=== PATIENT | female | born 1970 | race Caucasian/White ===

== ENCOUNTER 2021-07-20 19:01 | Emergency (ER) | payer SELFPAY | END 2021-07-20 20:24 | disposition left against medical advice (07) | LOC: ER 19:01 | DX: R10.9 Unspecified abdominal pain (principal); Z53.21 Procedure and treatment not carried out due to patient leaving prior to being seen by health care provider ==

== ENCOUNTER 2022-03-06 13:30 | Outpatient (CLI) | payer BC | END 2022-03-06 23:59 | disposition home or self-care (01) | LOC: RAD 13:30 | PROVIDERS: ATTEND Orthopaedic Surgery | DX: M47.817 Spondylosis without myelopathy or radiculopathy, lumbosacral region (principal); M48.07 Spinal stenosis, lumbosacral region; M70.61 Trochanteric bursitis, right hip; M76.31 Iliotibial band syndrome, right leg; M25.552 Pain in left hip; M25.551 Pain in right hip; Z90.49 Acquired absence of other specified parts of digestive tract; Z97.5 Presence of (intrauterine) contraceptive device; Z98.890 Other specified postprocedural states | CPT/HCPCS: 72100; 72170 ==

== ENCOUNTER 2022-03-19 11:34 | Outpatient (CLI) | payer BC | END 2022-03-19 23:59 | disposition home or self-care (01) | LOC: RAD 11:34 | PROVIDERS: ATTEND Orthopaedic Surgery | DX: M51.36 Other intervertebral disc degeneration, lumbar region (principal); M48.061 Spinal stenosis, lumbar region without neurogenic claudication; M47.816 Spondylosis without myelopathy or radiculopathy, lumbar region; M51.26 Other intervertebral disc displacement, lumbar region; M19.09 Primary osteoarthritis, other specified site; K57.30 Diverticulosis of large intestine without perforation or abscess without bleeding; M70.61 Trochanteric bursitis, right hip; M76.31 Iliotibial band syndrome, right leg; M25.552 Pain in left hip; M25.551 Pain in right hip | CPT/HCPCS: 72148; 73721 ==

== ENCOUNTER → 2022-10-19 | Outpatient (CLI) | payer BC ==
[2022-10-19 08:56] LABS: HEMOGLOBIN A1C 5.8 % (4.5-6.2)
[2022-10-19 08:59] LABS: CHOL/HDL RATIO 5.5 (0.00-4.99); CHOLESTEROL 253 MG/DL (0-200); HDL CHOLESTEROL 46 MG/DL (35-60); LDL CHOLESTEROL 161 MG/DL (50-100); TRIGLYCERIDES 154 MG/DL (20-135)
== END | disposition home or self-care (01) ==
LOC: LAB 08:17
PROVIDERS: ATTEND Family Medicine
DX: Z13.1 Encounter for screening for diabetes mellitus (principal); E78.5 Hyperlipidemia, unspecified
CPT/HCPCS: 36415; 80061; 83036

== ENCOUNTER 2022-11-08 10:51 | Outpatient (CLI) | payer BC | END 2022-11-08 23:59 | disposition home or self-care (01) | LOC: LAB 10:51 | PROVIDERS: ATTEND Family Medicine | DX: M77.31 Calcaneal spur, right foot (principal); M79.671 Pain in right foot | CPT/HCPCS: 73630 ==

== ENCOUNTER 2022-12-05 09:37 | Emergency (ER) | payer BC ==
[~2022-12-05] VITALS: Ht 160 cm; Wt 80.0 kg
[2022-12-05 10:30] LABS: HEMOGLOBIN 14.9 g/dl (12.0-16.0); MEAN PLATELET VOLUME 8.8 FL (7.4-10.4); RED CELL DISTRIBUTION WIDTH 13.9 % (11.5-14.5)
[2022-12-05 10:31] LABS: BASOPHILS # (AUTO) 0.1 X10'3 (0-0.2); BASOPHILS % (AUTO) 0.5 % (0-1); EOSINOPHILS # (AUTO) 0.2 X10'3 (0-0.9); EOSINOPHILS % (AUTO) 1.7 % (0-6); HEMATOCRIT 44.6 % (35.0-45.0); LYMPHOCYTES # (AUTO) 3.7 X10'3 (1.1-4.8); LYMPHOCYTES % (AUTO) 37.8 % (21-51); MEAN CORPUSCULAR HEMOGLOBIN 31.1 PG (27.0-31.0); MEAN CORPUSCULAR HGB CONC 33.4 g/dL (33.0-36.5); MONOCYTES # (AUTO) 0.8 X10'3 (0-0.9); MONOCYTES % (AUTO) 7.8 % (2-12); NEUTROPHILS # (AUTO) 5.1 X10'3 (1.8-7.7); NEUTROPHILS % (AUTO) 52.2 % (42-75); PLATELET COUNT 257 X10'3 (140-440); WHITE BLOOD COUNT 9.9 X10'3 (4.5-11.0)
[2022-12-05 10:41] LABS: ALANINE AMINOTRANSFERASE 41 U/L (12-78); ALBUMIN 3.9 G/DL (3.4-5.0); ALBUMIN/GLOBULIN RATIO 1.1 (1.1-1.5); ALKALINE PHOSPHATASE 151 IU/L (46-116); AMYLASE 90 U/L (25-115); ANION GAP 9 (8-16); ASPARTATE AMINO TRANSFERASE 16 U/L (10-37); BILIRUBIN,TOTAL 0.4 MG/DL (0.1-1.0); BLOOD UREA NITROGEN 28 MG/DL (7-18); BUN/CREATININE RATIO 30.4 (10.0-20.0); CALCIUM 9.5 MG/DL (8.5-10.1); CHLORIDE 107 MMOL/L (99-107); CREATININE 0.92 MG/DL (0.40-0.90); GLUCOSE 77 MG/DL (70-104); LIPASE 415 U/L (73-393); SODIUM 139 MMOL/L (135-145); TOTAL CARBON DIOXIDE 23.5 MMOL/L (24-32); TOTAL PROTEIN 7.5 G/DL (6.4-8.2); eGFR 64 ML/MIN
[2022-12-05] MEDS ORDERED: ondansetron/PF 4mg/2ml inj IV ONE (10:45)
[2022-12-05] MEDS ORDERED: iohexol 300mg/ml 100ml inj. ONE (11:02)
[2022-12-05 11:19] LABS: COLOR,URINE YELLOW (Yellow); GLUCOSE, URINE NEGATIVE (Neg); KETONES,URINE NEGATIVE (Neg); LEUKOCYTE ESTERASE ,URINE NEGATIVE (Neg); NITRITES, URINE NEGATIVE (Neg); OCCULT BLOOD,URINE NEGATIVE (Neg); PROTEIN,URINE NEGATIVE (Neg); URINE HCG NEGATIVE (NEG); UROBILINOGEN,URINE 0.2 E.U/dL (0.2-1.0)
[2022-12-05 11:21] LABS: CLARITY,URINE SLIGHTLY CLOUDY (Clear)
[2022-12-05 11:31] LABS: SQUAMOUS EPITHELIAL CELL,UR MANY /LPF (FEW); UA COLLECTION TYPE CLN CATCH MIDSTREAM
[2022-12-05 11:32] LABS: BACTERIA,URINE 2+ /HPF (Neg); MUCUS STRANDS FEW /LPF (Neg)
[2022-12-05 11:33] LABS: RBC,URINE 0-2 /HPF (0-2); WBC,URINE 0-4 /HPF (0-4)
[2022-12-05] MEDS ORDERED: ONDA4TAB12 PO (12:55)
[2022-12-05] MEDS ORDERED: AMOX-117 PO (12:55)
[2022-12-05] MEDS ORDERED: METR-159 PO (12:55)
[2022-12-05 13:13] VITALS: BP 126/90
== END 2022-12-05 19:06 | disposition home or self-care (01) ==
LOC: ER 09:38
DX: R10.9 Unspecified abdominal pain (principal); R19.7 Diarrhea, unspecified; R05.9 Cough, unspecified; M54.9 Dorsalgia, unspecified; Z79.899 Other long term (current) drug therapy
CPT/HCPCS: 36415; 74177; 80053; 81001; 81025; 82150; 83690; 85025; 96374; 99285; J2405; J3490; Q9967

== ENCOUNTER 2023-01-02 18:39 | Emergency (ER) | payer BC ==
[~2023-01-02] VITALS: Ht 160 cm; Wt 80.9 kg
[~2023-01-02 18:39] MED LIST: ONDA4TAB12 PO
[2023-01-02 18:57] VITALS: BP 139/92; PULSE 102; RESP 18; O2SAT 98
[2023-01-02 19:26] LABS: BASOPHILS # (AUTO) 0.1 X10'3 (0-0.2); BASOPHILS % (AUTO) 0.7 % (0-1); EOSINOPHILS # (AUTO) 0.2 X10'3 (0-0.9); EOSINOPHILS % (AUTO) 1.7 % (0-6); HEMATOCRIT 44.6 % (35.0-45.0); HEMOGLOBIN 14.9 g/dl (12.0-16.0); LYMPHOCYTES % (AUTO) 19.9 % (21-51); MEAN CORPUSCULAR HEMOGLOBIN 31.4 PG (27.0-31.0); MEAN CORPUSCULAR HGB CONC 33.5 g/dL (33.0-36.5); MEAN CORPUSCULAR VOLUME 93.8 FL (78-98); MEAN PLATELET VOLUME 8.2 FL (7.4-10.4); MONOCYTES # (AUTO) 0.6 X10'3 (0-0.9); MONOCYTES % (AUTO) 6.2 % (2-12); NEUTROPHILS # (AUTO) 7.2 X10'3 (1.8-7.7); NEUTROPHILS % (AUTO) 71.5 % (42-75); PLATELET COUNT 235 X10'3 (140-440); RED BLOOD COUNT 4.75 X10'6 (4.20-5.60); RED CELL DISTRIBUTION WIDTH 13.7 % (11.5-14.5)
[2023-01-02 19:36] LABS: ALANINE AMINOTRANSFERASE 33 U/L (12-78); ALBUMIN 3.9 G/DL (3.4-5.0); ALBUMIN/GLOBULIN RATIO 0.9 (1.1-1.5); ALKALINE PHOSPHATASE 142 IU/L (46-116); ANION GAP 10 (8-16); ASPARTATE AMINO TRANSFERASE 19 U/L (10-37); BILIRUBIN,TOTAL 0.3 MG/DL (0.1-1.0); BLOOD UREA NITROGEN 20 MG/DL (7-18); BUN/CREATININE RATIO 21.5 (10.0-20.0); CALCIUM 9.6 MG/DL (8.5-10.1); CHLORIDE 107 MMOL/L (99-107); CREATININE 0.93 MG/DL (0.40-0.90); GLUCOSE 104 MG/DL (70-104); LIPASE 172 U/L (73-393); POTASSIUM 3.7 MMOL/L (3.5-5.1); SODIUM 143 MMOL/L (135-145); TOTAL CARBON DIOXIDE 25.6 MMOL/L (24-32); TOTAL PROTEIN 8.2 G/DL (6.4-8.2); eGFR 63 ML/MIN
[2023-01-02 19:58] LABS: URINE HCG NEGATIVE (NEG)
[2023-01-02 19:59] LABS: CLARITY,URINE CLEAR (Clear); COLOR,URINE YELLOW (Yellow); GLUCOSE, URINE NEGATIVE (Neg); KETONES,URINE NEGATIVE (Neg); LEUKOCYTE ESTERASE ,URINE SMALL (Neg); NITRITES, URINE NEGATIVE (Neg); OCCULT BLOOD,URINE TRACE-INTACT (Neg); PROTEIN,URINE NEGATIVE (Neg); UROBILINOGEN,URINE 0.2 E.U/dL (0.2-1.0)
[2023-01-02 20:04] LABS: UA COLLECTION TYPE CLN CATCH MIDSTREAM
[2023-01-02 20:05] LABS: SQUAMOUS EPITHELIAL CELL,UR MODERATE /LPF (FEW)
[2023-01-02 20:06] LABS: BACTERIA,URINE NONE SEEN /HPF (Neg)
[2023-01-02] MEDS ORDERED: normal saline 1000ML IV soln IVB ONE (20:30)
[2023-01-02] MEDS ORDERED: ketorolac tromethamine 15mg/ml inj. IV ONE (20:30)
[2023-01-02] MEDS ORDERED: ondansetron/PF 4mg/2ml inj IV ONE (20:30)
[2023-01-02] MEDS: morphine 4 MG/ML inj SYRINge IV PRN ×2 (21:29→22:09)
[2023-01-02] MEDS ORDERED: CefTRIAXone 2gm/D5W 50ml BAG 50 ML IV ONE (21:30)
[2023-01-02] MEDS ORDERED: CEPH-585 PO (21:30)
--- NOTE | 2023-01-02 22:09 | NUR ---
iv dc'd pt being discharged dressing applied
== END 2023-01-02 22:22 | disposition home or self-care (01) ==
LOC: ER 18:40
DX: N39.0 Urinary tract infection, site not specified (principal); Z90.49 Acquired absence of other specified parts of digestive tract; Z72.89 Other problems related to lifestyle; Z79.899 Other long term (current) drug therapy
CPT/HCPCS: 36415; 74176; 80053; 81001; 81025; 83690; 85025; 87088; 96365; 96375; 99285; J0696; J1885; J7030

== ENCOUNTER 2023-07-05 05:36 | Day surgery (SDC) | payer BC ==
[2023-07-01 15:54] LABS: BASOPHILS # (AUTO) 0.1 X10'3 (0-0.2); BASOPHILS % (AUTO) 0.9 % (0-1); EOSINOPHILS # (AUTO) 0.2 X10'3 (0-0.9); LYMPHOCYTES # (AUTO) 3.5 X10'3 (1.1-4.8); LYMPHOCYTES % (AUTO) 46.5 % (21-51); MEAN CORPUSCULAR HEMOGLOBIN 30.9 PG (27.0-31.0); MEAN CORPUSCULAR HGB CONC 33.1 g/dL (33.0-36.5); MEAN CORPUSCULAR VOLUME 93.5 FL (78-98); MEAN PLATELET VOLUME 8.9 FL (7.4-10.4); MONOCYTES # (AUTO) 0.5 X10'3 (0-0.9); MONOCYTES % (AUTO) 6.8 % (2-12); NEUTROPHILS # (AUTO) 3.2 X10'3 (1.8-7.7); NEUTROPHILS % (AUTO) 42.8 % (42-75); PRE OP HEMATOCRIT 44.6 % (35.0-45.0); PRE OP HEMOGLOBIN 14.7 g/dL (12.0-16.0); PRE OP PLATELET COUNT 238 X10'3 (140-440); PRE OP WHITE BLOOD COUNT 7.5 10'3 (4.8-10.8); RED BLOOD COUNT 4.77 X10'6 (4.20-5.60); RED CELL DISTRIBUTION WIDTH 13.7 % (11.5-14.5)
[2023-07-01 16:17] LABS: ALBUMIN 3.8 G/DL (3.4-5.0); ALKALINE PHOSPHATASE 147 IU/L (46-116); BLOOD UREA NITROGEN 28 MG/DL (7-18); BUN/CREATININE RATIO 30.1 (10.0-20.0); CHLORIDE 107 MMOL/L (99-107); CREATININE 0.93 MG/DL (0.40-0.90); PRE OP ALT 35 U/L (30-65); PRE OP ANION GAP 10 (8-16); PRE OP AST 18 U/L (10-37); PRE OP BILIRUB, TOTAL 0.3 MG/DL (0.0-1.0); PRE OP GLUCOSE 100 MG/DL (70-104); PRE OP POTASSIUM 3.5 MMOL/L (3.4-5.1); PRE OP SODIUM 143 MMOL/L (135-145); TOTAL CARBON DIOXIDE 26.2 MMOL/L (24-32); TOTAL PROTEIN 7.8 G/DL (6.4-8.2); eGFR 63 ML/MIN
[~2023-07-05] VITALS: Ht 160 cm; Wt 81.6 kg
[2023-07-05] VITALS (18 sets, daily range): BP systolic 100–121; BP diastolic 59–86; PULSE 54–82; RESP 12–16; TEMP 98.3; O2SAT 93–97
[~2023-07-05 05:36] MED LIST changes: +ESCI-8 PO; +LEVE750T PO; +LEVE750T6 PO; -ONDA4TAB12 PO; +TOP100T PO; +cefazolin 2gm/D5W 100mL 100 ML IV ONE; +famotidine 20mg tablet PO ONE; +ringers solution, lacted 1,000 ML IV SCH
[2023-07-05] MEDS ORDERED: BUPIVAcaine 0.5% inj/PF 30 ML ONE (06:54)
[2023-07-05] MEDS ORDERED: scopolamine 1MG/72H patch 1 PATCH PATCH.TD.3 TD ONE (07:09)
[2023-07-05] MEDS ORDERED: midazolam 1 mg/ML 2ml injection ONE ×2 (07:10→07:23)
[2023-07-05] MEDS ORDERED: cloNIDine hcl/PF 100mcg/ml inj ONE (07:21)
[2023-07-05] MEDS ORDERED: fentaNYL/PF 50MCG/1 ML 2ML syringe ONE (07:23)
[2023-07-05] MEDS ORDERED: propofol inj 0 ML IV ONE (07:23)
[2023-07-05] MEDS ORDERED: sevoflurane 250ml liquid IH ONE (07:24)
[2023-07-05] MEDS ORDERED: LIDOcaine 2% (20mg/ml) 5ml vial ONE (07:24)
[2023-07-05] MEDS ORDERED: propofol inj 20 ML IV ONE (07:24)
[2023-07-05] MEDS ORDERED: dexamethasone sod phosphate 4mg/ml inj. ONE (07:25)
[2023-07-05] MEDS ORDERED: ROPIVAcaine 0.5% (5mg/ml) 30ml vial ONE (07:25)
[2023-07-05] MEDS ORDERED: BUPIVAcaine 0.5% inj/PF 30 ml vial IJ ONE (08:16)
[2023-07-05] MEDS ORDERED: ondansetron/PF 4mg/2ml inj IV PRN (08:35)
[2023-07-05] MEDS ORDERED: morphine 4 MG/ML inj SYRINge IV PRN (08:35)
[2023-07-05] MEDS ORDERED: proCHLORperazine 10 MG/2 ml inj IV PRN (08:35)
[2023-07-05] MEDS ORDERED: meperidine/PF 25mg/ml syringe IV PRN ×3 (08:35)
[2023-07-05] MEDS ORDERED: ringers solution, lacted 1,000 ML IV SCH (08:35)
[2023-07-05] MEDS ORDERED: morphine 2 MG/ML inj. syringe IV PRN (08:35)
[2023-07-05] MEDS ORDERED: triamcinolone acetonide 40mg/ml inj ONE (08:44)
[2023-07-05] MEDS ORDERED: ondansetron/PF 4mg/2ml inj ONE (08:56)
[2023-07-05] MEDS ORDERED: triamcinolone acetonide 40mg/ml inj IJ ONE (08:59)
== END 2023-07-05 11:55 | disposition home or self-care (01) ==
LOC: PAS 05:36
PROVIDERS: ATTEND Orthopaedic Surgery
DX: M75.02 Adhesive capsulitis of left shoulder (principal); M75.22 Bicipital tendinitis, left shoulder; M75.52 Bursitis of left shoulder; M65.812 Other synovitis and tenosynovitis, left shoulder; S46.012A Strain of muscle(s) and tendon(s) of the rotator cuff of left shoulder, initial encounter; S43.432A Superior glenoid labrum lesion of left shoulder, initial encounter; G40.409 Other generalized epilepsy and epileptic syndromes, not intractable, without status epilepticus; G89.18 Other acute postprocedural pain; Z98.890 Other specified postprocedural states; Z79.899 Other long term (current) drug therapy; Z90.49 Acquired absence of other specified parts of digestive tract; Z82.5 Family history of asthma and other chronic lower respiratory diseases; Z80.3 Family history of malignant neoplasm of breast; Z82.3 Family history of stroke; X58.XXXA Exposure to other specified factors, initial encounter; Y93.89 Activity, other specified; Y92.89 Other specified places as the place of occurrence of the external cause; Y99.8 Other external cause status
CPT/HCPCS: 29823; 29828; 36415; 64415; 80053; 82948; 85025; 93005; J0690; J0735; J1100; J2250; J2405; J2704; J2795; J3010; J3301; J3490; J7030; J7120; S0020; Z7506; Z7508; Z7512; A4215; A4565; A4618; A6253; A6449; A7000

== ENCOUNTER 2023-08-27 08:31 | Outpatient (CLI) | payer BC ==
[~2023-08-27 08:31] MED LIST changes: -cefazolin 2gm/D5W 100mL 100 ML IV ONE; -famotidine 20mg tablet PO ONE; -ringers solution, lacted 1,000 ML IV SCH
== END 2023-08-27 23:59 | disposition home or self-care (01) ==
LOC: RAD 08:31
PROVIDERS: ATTEND Family Medicine
DX: R05.9 Cough, unspecified (principal)
CPT/HCPCS: 71046

== ENCOUNTER 2023-10-02 07:54 | Day surgery (SDC) | payer BC ==
[~2023-10-02] VITALS: Ht 160 cm; Wt 79.5 kg
[2023-10-02 08:08] VITALS: BP 139/86; PULSE 89; RESP 13
[2023-10-02] MEDS ORDERED: LIDOcaine 2% Viscous 15ml cup ONE (08:37)
[2023-10-02] MEDS ORDERED: fentaNYL/PF 50MCG/1 ML 2ML syringe ONE (08:48)
[2023-10-02] MEDS ORDERED: diphenhydrAMINE 50 mg/ml inj ONE (08:49)
[2023-10-02] MEDS ORDERED: MIDAZolam 1 MG/ML 5ML VIAL ONE (08:49)
[2023-10-02 09:15] VITALS: BP 124/77; PULSE 68; RESP 11; O2SAT 97
[2023-10-02 09:25] VITALS: BP 125/72; PULSE 66; RESP 11; O2SAT 93
[2023-10-02 09:35] VITALS: BP 120/76; PULSE 67; RESP 12; O2SAT 93
[2023-10-02 09:45] VITALS: BP 124/84; PULSE 72; RESP 14; O2SAT 96
== END 2023-10-02 09:51 | disposition home or self-care (01) ==
LOC: GI LAB 07:54
PROVIDERS: ATTEND Internal Medicine Gastroenterology
DX: K21.9 Gastro-esophageal reflux disease without esophagitis (principal)
CPT/HCPCS: 43239; 99152; J1200; J2250; J3010; Z7512; A4620

== ENCOUNTER 2023-10-02 15:29 | Emergency (ER) | payer BC ==
[~2023-10-02] VITALS: Ht 160 cm; Wt 90.0 kg
[2023-10-02 15:34] VITALS: TEMP 98.7
[2023-10-02 16:44] LABS: BASOPHILS % (AUTO) 0.8 % (0-1); EOSINOPHILS # (AUTO) 0.1 X10'3 (0-0.9); EOSINOPHILS % (AUTO) 1.7 % (0-6); HEMATOCRIT 41.3 % (35.0-45.0); HEMOGLOBIN 13.6 g/dl (12.0-16.0); LYMPHOCYTES # (AUTO) 2.4 X10'3 (1.1-4.8); LYMPHOCYTES % (AUTO) 37.9 % (21-51); MEAN CORPUSCULAR HEMOGLOBIN 31.1 PG (27.0-31.0); MEAN CORPUSCULAR VOLUME 94.3 FL (78-98); MEAN PLATELET VOLUME 8.6 FL (7.4-10.4); MONOCYTES # (AUTO) 0.4 X10'3 (0-0.9); MONOCYTES % (AUTO) 6.1 % (2-12); NEUTROPHILS # (AUTO) 3.4 X10'3 (1.8-7.7); NEUTROPHILS % (AUTO) 53.5 % (42-75); PLATELET COUNT 202 X10'3 (140-440); RED BLOOD COUNT 4.38 X10'6 (4.20-5.60); RED CELL DISTRIBUTION WIDTH 13.8 % (11.5-14.5); WHITE BLOOD COUNT 6.3 X10'3 (4.5-11.0)
[2023-10-02 16:48] LABS: ALBUMIN 3.4 G/DL (3.4-5.0); ANION GAP 8 (8-16); BLOOD UREA NITROGEN 20 MG/DL (7-18); BUN/CREATININE RATIO 27.4 (10.0-20.0); CALCIUM 8.9 MG/DL (8.5-10.1); CHLORIDE 110 MMOL/L (99-107); CREATININE 0.73 MG/DL (0.40-0.90); GLUCOSE 116 MG/DL (70-104); POTASSIUM 3.4 MMOL/L (3.5-5.1); SODIUM 142 MMOL/L (135-145); TOTAL CARBON DIOXIDE 23.6 MMOL/L (24-32); eCRCL 74 ML/MIN; eGFR 83 ML/MIN
[2023-10-02] MEDS: normal saline 1000ML IV soln IVB ONE (16:48)
[2023-10-02] MEDS: magnesium 2GM in 50ml NS 50 ML IV ONE (16:49)
[2023-10-02] MEDS: metoclopramide 5 mg/ml inj IV ONE (16:49)
[2023-10-02] MEDS: diphenhydrAMINE 50 mg/ml inj IV ONE (16:49)
[2023-10-02] MEDS ORDERED: ketorolac trometh. 30mg/ml inj. IV ONE (17:40)
[2023-10-02] MEDS: ketorolac tromethamine 15mg/ml inj. IV ONE (17:50)
[2023-10-02 18:28] LABS: BILIRUBIN,URINE NEGATIVE (Neg); CLARITY,URINE SLIGHTLY CLOUDY (Clear); COLOR,URINE YELLOW (Yellow); GLUCOSE, URINE NEGATIVE (Neg); KETONES,URINE NEGATIVE (Neg); LEUKOCYTE ESTERASE ,URINE NEGATIVE (Neg); NITRITES, URINE NEGATIVE (Neg); OCCULT BLOOD,URINE NEGATIVE (Neg); PH,URINE 6.5 (4.8-8.0); PROTEIN,URINE NEGATIVE (Neg); UROBILINOGEN,URINE 0.2 E.U/dL (0.2-1.0)
[2023-10-02 18:33] LABS: UA COLLECTION TYPE CLN CATCH MIDSTREAM
[2023-10-02 18:34] LABS: SQUAMOUS EPITHELIAL CELL,UR MANY /LPF (FEW)
[2023-10-02 18:35] LABS: BACTERIA,URINE FEW /HPF (Neg); RBC,URINE NONE SEEN /HPF (0-2); WBC,URINE 0-4 /HPF (0-4)
[2023-10-02 18:36] LABS: AMORPHOUS URATES 4+
[2023-10-02 19:06] VITALS: BP 142/91; PULSE 97; RESP 16; O2SAT 96
== END 2023-10-02 19:08 | disposition home or self-care (01) ==
LOC: ER 15:29
DX: G43.909 Migraine, unspecified, not intractable, without status migrainosus (principal); Z79.899 Other long term (current) drug therapy; Z90.49 Acquired absence of other specified parts of digestive tract
CPT/HCPCS: 36415; 70450; 71045; 80048; 81001; 85025; 93005; 96365; 96375; 99285; J1200; J1885; J2765; J3475; J7030

== ENCOUNTER 2023-12-11 08:09 | Outpatient (CLI) | payer BC | END 2023-12-11 23:59 | disposition home or self-care (01) | LOC: LAB 08:09 | PROVIDERS: ATTEND Obstetrics & Gynecology | DX: N91.2 Amenorrhea, unspecified (principal) | CPT/HCPCS: 36415; 83001 ==

== ENCOUNTER 2023-12-11 08:17 | Outpatient (CLI) | payer BC ==
[2023-12-11 09:10] LABS: BASOPHILS # (AUTO) 0.1 X10'3 (0-0.2); BASOPHILS % (AUTO) 0.8 % (0-1); EOSINOPHILS # (AUTO) 0.2 X10'3 (0-0.9); EOSINOPHILS % (AUTO) 3.2 % (0-6); HEMATOCRIT 41.6 % (35.0-45.0); HEMOGLOBIN 13.9 g/dl (12.0-16.0); LYMPHOCYTES # (AUTO) 2.3 X10'3 (1.1-4.8); LYMPHOCYTES % (AUTO) 31.6 % (21-51); MEAN CORPUSCULAR HEMOGLOBIN 30.8 PG (27.0-31.0); MEAN CORPUSCULAR HGB CONC 33.3 g/dL (33.0-36.5); MEAN CORPUSCULAR VOLUME 92.4 FL (78-98); MEAN PLATELET VOLUME 8.2 FL (7.4-10.4); MONOCYTES # (AUTO) 0.4 X10'3 (0-0.9); MONOCYTES % (AUTO) 5.7 % (2-12); NEUTROPHILS # (AUTO) 4.2 X10'3 (1.8-7.7); NEUTROPHILS % (AUTO) 58.7 % (42-75); PLATELET COUNT 208 X10'3 (140-440); RED CELL DISTRIBUTION WIDTH 13.3 % (11.5-14.5); WHITE BLOOD COUNT 7.1 X10'3 (4.5-11.0)
[2023-12-11 09:23] LABS: ALANINE AMINOTRANSFERASE 36 U/L (12-78); ALBUMIN 3.6 G/DL (3.4-5.0); ALKALINE PHOSPHATASE 130 IU/L (46-116); ANION GAP 11 (8-16); ASPARTATE AMINO TRANSFERASE 20 U/L (10-37); BILIRUBIN,TOTAL 0.5 MG/DL (0.1-1.0); BLOOD UREA NITROGEN 26 MG/DL (7-18); BUN/CREATININE RATIO 27.4 (10.0-20.0); CALCIUM 9.3 MG/DL (8.5-10.1); CHLORIDE 108 MMOL/L (99-107); CREATININE 0.95 MG/DL (0.40-0.90); GLUCOSE 123 MG/DL (70-104); POTASSIUM 3.8 MMOL/L (3.5-5.1); SODIUM 142 MMOL/L (135-145); TOTAL CARBON DIOXIDE 23.5 MMOL/L (24-32); TOTAL PROTEIN 7.3 G/DL (6.4-8.2); eGFR 62 ML/MIN
== END 2023-12-11 23:59 | disposition home or self-care (01) ==
LOC: LAB 08:17
PROVIDERS: ATTEND Nurse Practitioner Family
DX: K20.0 Eosinophilic esophagitis (principal)
CPT/HCPCS: 36415; 80053; 85025

== ENCOUNTER 2024-01-31 06:46 | Day surgery (SDC) | payer BC ==
[~2024-01-31] VITALS: Ht 160 cm; Wt 81.8 kg
[~2024-01-31 06:46] MED LIST changes: +ALBU8HFA INH
[2024-01-31 07:04] VITALS: BP 139/88; PULSE 93; RESP 18
[2024-01-31] MEDS ORDERED: propofol inj 20 ML IV ONE ×2 (08:43)
[2024-01-31 08:50] VITALS: BP 122/85; PULSE 58; RESP 16; O2SAT 100
[2024-01-31 09:00] VITALS: BP 127/85; PULSE 67; RESP 18; O2SAT 100
[2024-01-31 09:10] VITALS: BP 131/88; PULSE 58; RESP 14; O2SAT 100
[2024-01-31 09:20] VITALS: BP 138/89; PULSE 59; RESP 16; O2SAT 100
[2024-01-31 09:40] VITALS: BP 139/89; PULSE 58; RESP 16; O2SAT 99
[2024-01-31] MEDS ORDERED: propofol inj 40 ML IV ONE (10:30)
== END 2024-01-31 08:40 | disposition home or self-care (01) ==
LOC: SSTAY O 06:46
PROVIDERS: ATTEND Internal Medicine Gastroenterology
DX: K92.1 Melena (principal); K57.30 Diverticulosis of large intestine without perforation or abscess without bleeding; K64.4 Residual hemorrhoidal skin tags
CPT/HCPCS: 45378; J2704; J7030; Z7512; A4620

== ENCOUNTER 2024-04-10 08:28 | Outpatient (CLI) | payer BC ==
[2024-04-13 08:08] LABS: BASOPHILS # (AUTO) 0.1 X10'3 (0-0.2); EOSINOPHILS # (AUTO) 0.1 X10'3 (0-0.9); EOSINOPHILS % (AUTO) 2.3 % (0-6); HEMATOCRIT 40.8 % (35.0-45.0); HEMOGLOBIN 13.7 g/dl (12.0-16.0); LYMPHOCYTES # (AUTO) 3.1 X10'3 (1.1-4.8); LYMPHOCYTES % (AUTO) 48.4 % (21-51); MEAN CORPUSCULAR HEMOGLOBIN 31.5 PG (27.0-31.0); MEAN CORPUSCULAR HGB CONC 33.7 g/dL (33.0-36.5); MEAN CORPUSCULAR VOLUME 93.7 FL (78-98); MEAN PLATELET VOLUME 8.4 FL (7.4-10.4); MONOCYTES # (AUTO) 0.5 X10'3 (0-0.9); MONOCYTES % (AUTO) 7.7 % (2-12); NEUTROPHILS # (AUTO) 2.6 X10'3 (1.8-7.7); NEUTROPHILS % (AUTO) 40.6 % (42-75); PLATELET COUNT 227 X10'3 (140-440); RED BLOOD COUNT 4.35 X10'6 (4.20-5.60); RED CELL DISTRIBUTION WIDTH 13.9 % (11.5-14.5); WHITE BLOOD COUNT 6.3 X10'3 (4.5-11.0)
[2024-04-13 08:24] LABS: ALANINE AMINOTRANSFERASE 24 U/L (12-78); ALBUMIN 3.4 G/DL (3.4-5.0); ALBUMIN/GLOBULIN RATIO 0.9 (1.1-1.5); ALKALINE PHOSPHATASE 136 IU/L (46-116); ANION GAP 9 (8-16); ASPARTATE AMINO TRANSFERASE 20 U/L (10-37); BILIRUBIN,TOTAL 0.3 MG/DL (0.1-1.0); BLOOD UREA NITROGEN 20 MG/DL (7-18); BUN/CREATININE RATIO 18.9 (10.0-20.0); CALCIUM 8.5 MG/DL (8.5-10.1); CHLORIDE 107 MMOL/L (99-107); CREATININE 1.06 MG/DL (0.40-0.90); GLUCOSE 100 MG/DL (70-104); POTASSIUM 3.7 MMOL/L (3.5-5.1); SODIUM 138 MMOL/L (135-145); TOTAL CARBON DIOXIDE 21.9 MMOL/L (24-32); TOTAL PROTEIN 7.1 G/DL (6.4-8.2); eGFR 54 ML/MIN
[2024-04-13 08:34] LABS: CHOL/HDL RATIO 5.1 (0.00-4.99); CHOLESTEROL 255 MG/DL (0-200); FREE T4 (FREE THYROXINE) 0.75 NG/DL (0.73-1.40); HDL CHOLESTEROL 50 MG/DL (35-60); LDL CHOLESTEROL 159 MG/DL (50-100); THYROID STIMULATING HORMONE 5.42 ulU/ml (0.34-4.50); TRIGLYCERIDES 169 MG/DL (20-135)
[2024-04-13 08:53] LABS: HEMOGLOBIN A1C 5.8 % (4.5-6.2)
== END 2024-04-10 23:59 | disposition home or self-care (01) ==
LOC: LAB 08:28
PROVIDERS: ATTEND Family Medicine
DX: E78.5 Hyperlipidemia, unspecified (principal); E07.9 Disorder of thyroid, unspecified; F33.1 Major depressive disorder, recurrent, moderate; F41.1 Generalized anxiety disorder; G40.909 Epilepsy, unspecified, not intractable, without status epilepticus; K20.0 Eosinophilic esophagitis; R73.09 Other abnormal glucose; Z79.899 Other long term (current) drug therapy
CPT/HCPCS: 36415; 80053; 80061; 83036; 84439; 84443; 85025

== ENCOUNTER 2025-02-22 18:30 | Emergency (ER) | payer SELFPAY ==
[~2025-02-22] VITALS: Ht 162.6 cm; Wt 81.8 kg
[2025-02-22 18:36] VITALS: TEMP 98.6
[2025-02-22] MEDS: normal saline 1000ml 1,000 ML IV ONE (18:46)
--- NOTE | 2025-02-22 19:02 | RADIOLOGY REPORT ---
CHEST RADIOGRAPH Indication: CP Technique: Single frontal view of the chest was obtained Comparison: DI CHEST,SINGLE VIEW on DOS: 10/02/23 FINDINGS: Lines and Tubes: None Lungs: No focal consolidation. Pleura: No effusion. No pneumothorax. Cardiomediastinal contours: Unremarkable Bones: No acute osseous abnormality. IMPRESSION: No acute cardiopulmonary disease.
--- NOTE | 2025-02-22 19:21 | Physician Documentation ---
History of Present Illness ~ Chief Complaint: Syncope Stated Complaint: KIDNEY STONES Time Seen by MD: 18:33 Primary Medical Doctor: JUAN HPI Patient presents to the emergency room after syncopal episode. She is going to the bathroom when she suddenly had abdominal pain felt strange and fell to the ground. She did not strike her head. No blood thinners. Significant weakness to the point where she could not stand when EMS arrived. Does state that she may not been drinking enough water. Positive nausea but none at this time. She denies any chest pain or palpitations. She states she is feeling better. Initial abdominal pain has since resolved. Medication Reconciliation Allergies: Coded Allergies: No Known Allergies (Unverified , 02/22/25) Scheduled Escitalopram Oxalate (Escitalopram Oxalate), 1 TAB PO QPM, (Reported) Levetiracetam (Levetiracetam), 2 TAB PO QAM, (Reported) Levetiracetam (Keppra), 1 TAB PO QPM, (Reported) Topiramate (Topamax), 1 TAB PO QPM, (Reported) Scheduled PRN albuterol inhaler (Pro-Air Inhaler), Unknown Dose INH Q4HPRN PRN for wheezing, (Reported) Past Medical History Past Medical History: Diverticulitis Past Surgical History: cholecystectomy Alcohol Use: Other Review of Systems ROS All review of systems negative except as per HPI Physical Exam Vital Signs: Temperature: 98.6, Source: Oral, Heart Rate: 70, Respiratory Rate: 18, BP: 134/84, Pulse Oximetry: 96, Weight: 81.820 Oxygen Flow Rate: 0 Physical Exam General: Patient is awake, alert, oriented x4 in no acute distress. Anxious Head: Normocephalic and atraumatic. Eyes: Conjunctival normal. EOMI. PERRL. ENT: Mucous membranes moist. Neck: Supple, trachea is midline. Chest: Clear to auscultation bilaterally without rales, rhonchi, or wheezes. There is no accessory muscle use or retractions. Cardiac: RRR without murmurs, gallops, or rubs. Abd: Soft, nondistended, nontender, with normoactive bowel sounds. No guarding, rebound, or rigidity. Progress Results/Orders Results/Orders Orders - ASIF ARAUJO MD Electrocardiogram (02/22/25 18:34) Chest,Single View (02/22/25 18:34) Saline Lock (02/22/25 18:34) Monitor (02/22/25 18:34) Oxygen (02/22/25 18:34) Ct Abdomen Pelvis (02/22/25 21:32) Completed Orders - ASIF ARAUJO MD MG (02/22/25 18:34) PBNP (02/22/25 18:34) Chest,Single View (02/22/25 18:34) BMP (02/22/25 18:34) Hs Troponin I W Calculations (02/22/25 18:34) Hs Troponin I W Calculations (02/22/25 20:34) Hs Troponin I W Calculations (02/22/25 21:34) Procalcitonin (02/22/25 18:34) CMP (02/22/25 18:34) LA (02/22/25 18:34) Normal Saline 1000ml (0.9% Sodium Chlori (02/22/25 18:35) Cbc/Diff (02/22/25 19:22) Man Diff (02/22/25 19:48) Ua With Microscopic (02/22/25 19:44) Ct Abdomen Pelvis (02/22/25 21:32) Medications Received in ER Medications (Trade) Dose Ordered Sig/Miguelito Route PRN Reason Start Time Stop Time Status Last Admin Dose Admin Sodium Chloride 1,000 ml @ 1,000 mls/hr ONCE ONCE IV 02/22/25 18:35 02/22/25 19:34 DC 02/22/25 18:46 1,000 MLS/HR Vital Signs 02/22/25 02/22/25 02/22/25 02/22/25 18:36 20:10 20:17 22:17 Temp 98.6 Pulse 70 75 81 Resp 18 16 12 16 B/P (MAP) 134/84 109/76 (87) 129/86 (100) Pulse Ox 96 97 99 O2 Flow Rate 0 Laboratory Tests Test 02/22/25 18:47 02/22/25 19:44 02/22/25 19:48 02/22/25 20:52 CBC Comment Sodium Level 146 H Potassium Level 3.4 L Chloride Level 111 H Carbon Dioxide Level 24.9 Anion Gap 10 Blood Urea Nitrogen 23 H Creatinine 1.15 H Estimated GFR/1.73 m2 49 BUN/Creatinine Ratio 20.0 Glucose Level 142 H Lactic Acid Level 1.2 Calcium Level 9.0 Magnesium Level 2.3 Total Bilirubin 0.3 Aspartate Amino Transf (AST/SGOT) 27 Alanine Aminotransferase (ALT/SGPT) 44 Alkaline Phosphatase 160 H Troponin I High Sensitivity < 4 L < 4 L Troponin I High Sens Percent Delta Troponin I Hi Sens Absolute Change Pro-B-Type Natriuretic Peptide 34 Total Protein 7.6 Albumin 3.7 Globulin 3.9 Albumin/Globulin Ratio 0.9 L Procalcitonin < 0.05 Chemistry Comments Urine Specimen Description Non-specified Urine Color Yellow Urine Clarity Slightly cloudy Urine pH 5.5 Urine Specific [place] >=1.030 Urine Protein Negative Urine Glucose (UA) Negative Urine Ketones Negative Urine Occult Blood Negative Urine Nitrite Negative Urine Bilirubin Negative Urine Urobilinogen 0.2 Urine Leukocyte Esterase Negative Urine RBC 0-2 Urine WBC 0-4 Urine Squamous Epithelial Cells Many Urine Amorphous Urates 1+ Urine Bacteria Few Urine Mucus Few Volume Urine Centrifuged 10 ml Urine Comment White Blood Count 23.6 H Red Blood Count 4.91 Hemoglobin 14.9 Hematocrit 44.9 Mean Corpuscular Volume 91.5 Mean Corpuscular Hemoglobin 30.4 Mean Corpuscular Hemoglobin Concent 33.2 Red Cell Distribution Width 13.8 Platelet Count 246 Mean Platelet Volume 8.4 Neutrophils (%) (Auto) 80.8 H Lymphocytes (%) (Auto) 12.2 L Monocytes (%) (Auto) 6.0 Eosinophils (%) (Auto) 0.8 Basophils (%) (Auto) 0.2 Neutrophils # (Auto) 19.0 H Lymphocytes # (Auto) 2.9 Monocytes # (Auto) 1.4 H Eosinophils # (Auto) 0.2 Basophils # (Auto) 0.1 Differential Total Cells Counted 100 Neutrophils % (Manual) 81.0 H Lymphocytes % (Manual) 13.0 L Monocytes % (Manual) 5.0 Eosinophils % (Manual) 1.0 Platelet Estimate Normal Red Blood Cell Morphology Perf Basophilic Stippling Test 02/22/25 22:00 Troponin I High Sensitivity < 4 L Troponin I High Sens Percent Delta Troponin I Hi Sens Absolute Change EKG/XRAY/CT/US/VASC/MRI EKG : Additional Comment EKG interpreted by myself shows time of 1835, rate 69, sinus rhythm, normal axis, no ST changes Chest X-Ray : Additional Comments Exam: CHEST,SINGLE VIEW CHEST RADIOGRAPH Indication: CP Technique: Single frontal view of the chest was obtained Comparison: DI CHEST,SINGLE VIEW on DOS: 10/02/23 FINDINGS: Lines and Tubes: None Lungs: No focal consolidation. Pleura: No effusion. No pneumothorax. Cardiomediastinal contours: Unremarkable Bones: No acute osseous abnormality. IMPRESSION: No acute cardiopulmonary disease. Medical Decision Making Findings Patient presents to the emergency room after syncopal episode after defecating with abdominal pain. Differentials include but are not limited to vasovagal, dehydration, cardiac arrhythmia, ACS therefore emergent labs ordered. Patient was significant abdominal pain CT scan of her abdomen was ordered which did not show any emergent process. Troponins negative x3. EKGs reassuring. No report of any chest pain however if patient had reported any sort of chest pain her heart score would be two. She has passed the road test. Symptoms consistent with vasovagal response. Departure Disposition: HOME / SELF CARE / HOMELESS Impression: Primary Impression: Vasovagal syncope Condition: Stable Discharge Instructions: Syncope, Adult Referrals: NO PRIMARY CARE PROVIDER (PCP) Prescriptions Loperamide Hcl (Loperamide) 2 Mg Capsule 2 CAP PO Q6H for loose stool for 5 Days, #40 CAP 0 Refills Prov: ASIF ARAUJO MD 02/22/25 Education Educated: Patient Educated regarding: diagnosis, treatment, need for follow up Signature Scribe Signature: No scribe Attestation: The note accurately reflects work and decisions made by me.Asif Araujo MD 02/22/25 22:35 ASIF ARAUJO MD Feb 22, 2025 19:21
[2025-02-22 19:29] LABS: CREATININE 1.15 MG/DL (0.40-0.90); TOTAL CARBON DIOXIDE 24.9 MMOL/L (24-32); eCRCL 48 ML/MIN; eGFR 49 ML/MIN
[2025-02-22 19:36] LABS: PRO BRAIN NATRIURETIC PEPTIDE 34 PG/ML (0-125)
[2025-02-22 19:59] LABS: LEUKOCYTE ESTERASE ,URINE NEGATIVE (Neg); NITRITES, URINE NEGATIVE (Neg); OCCULT BLOOD,URINE NEGATIVE (Neg)
[2025-02-22 19:59] LABS: MEAN PLATELET VOLUME 8.4 FL (7.4-10.4); RED CELL DISTRIBUTION WIDTH 13.8 % (11.5-14.5)
[2025-02-22 20:02] LABS: UA COLLECTION TYPE NON-SPECIFIED
[2025-02-22 20:04] LABS: MUCUS STRANDS FEW /LPF (Neg); SQUAMOUS EPITHELIAL CELL,UR MANY /LPF (FEW)
[2025-02-22 20:05] LABS: AMORPHOUS URATES 1+
[2025-02-22 20:22] LABS: EOSINOPHILS % (MANUAL) 1.0 % (0-6); LYMPHOCYTES % (MANUAL) 13.0 % (21-51); MONOCYTES % (MANUAL) 5.0 % (2-12); NEUTROPHILS % (MANUAL) 81.0 % (42-75); PLATELET ESTIMATE NORMAL
--- NOTE | 2025-02-22 22:08 | RADIOLOGY REPORT ---
CLINICAL HISTORY: abd pain TECHNIQUE: CT of the abdomen and pelvis was performed without IV contrast. This exam was performed according to our departmental dose optimization program. Up-to-date CT equipment and radiation dose reduction techniques are utilized as appropriate. CTDI 25.6 DLP 1172 COMPARISON: CT ABDOMEN PELVIS on DOS: 01/02/23, CT ABDOMEN PELVIS on DOS: 12/05/22, PELVIS,LIMITED 1-2 VIEWS on DOS: 03/06/22 FINDINGS: Abdomen/Pelvis: The spleen, pancreas, adrenal glands, uterus, and bladder are grossly unremarkable.. There are small bilateral nonobstructing renal calculi measuring up to 3mm on the left. There is diffuse hepatic steatosis. The gallbladder is absent. The abdominal aorta is normal in course and caliber. There are minimal atherosclerotic calcifications. There is no free intraperitoneal air or fluid. There is no enlarged abdominal pelvic lymph node. There is no bowel wall thickening or dilatation. The appendix is normal. There is a moderate amount of fluid within the colon. There is mild colonic diverticulosis. Other: The imaged lower thorax is unremarkable. No acute osseous abnormality is evident. Impression: No acute noncontrast CT abnormality in the abdomen or pelvis. Diffuse hepatic steatosis. Bilateral nonobstructing renal calculi. Colonic diverticulosis. Moderate fluid within within the colon, compatible with impending diarrhea.
[2025-02-22] MEDS ORDERED: LOPE2CAP PO (22:35)
[2025-02-22] MEDS: loperamide 2mg capsule PO ONE (22:43)
[2025-02-22 22:52] VITALS: BP 131/87; PULSE 76; RESP 16; O2SAT 96
--- NOTE | 2025-02-23 06:06 | ELECTROCARDIOGRAPH REPORT ---
[facility] Test Date: 2025-02-22 Test Time: 18:35:03 Pat Name: SHYAM LAM Department: EMERGENCY ROOM Room: Gender: F Help Desk Operator: IRIS : [id number] Requested By: ALFONZO ROSENBERG Order Number: [id number] Reading MD: Dr. Ezra Cam Measurements Intervals [place] Rate: 69 P: 38 UT: 174 QRS: -9 QRSD: 113 T: 17 QT: 418 QTc: 448 Interpretive Statements Sinus rhythm Incomplete right bundle branch block Low voltage, precordial leads Electronically Signed On 02-24-2025 19:18:[address] Ezra Cam Please click the below link to view image of tracing.
== END 2025-02-22 22:53 | disposition home or self-care (01) ==
LOC: ER 18:31
DX: R55 Syncope and collapse (principal); R11.0 Nausea; Z90.49 Acquired absence of other specified parts of digestive tract; Z79.899 Other long term (current) drug therapy; W18.39XA Other fall on same level, initial encounter; Y93.89 Activity, other specified; Y92.89 Other specified places as the place of occurrence of the external cause; Y99.8 Other external cause status
CPT/HCPCS: 36415; 71045; 74176; 80053; 81001; 83605; 83735; 83880; 84145; 84484; 85007; 85025; 93005; 96360; 99285; J7030